=== PATIENT | female | born 1945 | race Caucasian/White ===

== ENCOUNTER 2019-03-19 18:56 | Emergency (ER) | payer MEDICARE, SELFPAY ==
[2019-03-19 18:57] VITALS: BP 168/77; PULSE 108; RESP 18; TEMP 36.6; O2SAT 92; BMI 39.3
--- NOTE | 2019-03-19 19:37 | ED.DCSUM_ITS ---
- ER Visit Summary Date of Service: 03/19/19 Chief Complaint: Right small finger is swollen infected History of Present Illness: The patient is a 73 F history of insulin-dependent diabetes. 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 She thinks she may have been a small puncture wound in the right small finger. She did not see any signs of a splinter she did [place] at the area with a small knife she had at home and said she could not find any foreign body. Now she believes it is infected. She denies any fever or chills. She is right-hand dominant. No prior history. She also says she has some minimal swelling in the top of her left foot. No history of DVT or PE. No recent travel, surgery or immobilization. No calf pain or swelling. Physical Examination: Well-appearing older female vital signs are stable afebrile. She is in no distress. HEENT exam unremarkable. Lungs clear to auscultation bilaterally. Heart regular rhythm no murmur. Abdomen is soft and nontender normal bowel sounds no peritoneal signs. Extremities moves all 4. Neurovascular intact. She has minimal trace edema on top of her left foot. The calf is nontender without cords. No edema in the left lower leg. Both lower extremities neurovascular intact. She is a palpable DP pulse. There is no redness or warmth. The right small finger on the proximal phalanx soft tissue is swollen and tender consistent with a soft tissue infection. There is no lymphangitic streaking. She has full flexion-extension of the. It is mildly tender. There is no foreign body noted. There is a puncture wound. She has no epitrochlear or axillary lymphadenopathy. Neurologically she is awake alert with no focal deficits. Test Results: None Emergency Department Course and Treatment: Right small finger is obviously infected. Nothing needs to be drained at this time. There is no sausage digit. She was started on Augmentin 875 twice daily for 10 days. Follow-up with her doctor if not improving or return if worse. Treatment Plan: Augmentin 875 twice daily for 10 days. Return if worse. Disposition: Discharge Impression: Right small finger infection secondary to puncture wound History of insulin-dependent diabetes This note was generated with [employer] software. It may contain incorrect words, spelling, and punctuation that were not noted in review of the chart prior to signing ED Disposition - Plan for ED Patient: Referrals: Allan Velez DO [Primary Care Provider] -
--- NOTE | 2019-03-19 19:41 | ED.DEP ---
ED Disposition - Plan for ED Patient: Disposition: Home or Assisted Living Instructions: Cellulitis Prescriptions: Amox/Clavulanate Tablet [Augmentin Tablet] 875 mg PO Q12H #20 tab Prescription Printed Referrals: Allan Velez DO [Primary Care Provider] - 3-5 Days Additional Instructions: Soft tissue infection right small finger. Augmentin antibiotic 1 pill twice a day for 10 days. Return if feeling worse or finger looking a lot worse. Patient otherwise follow-up with your doctor. The small swelling in the left foot should resolve with elevation. If it is not to be reevaluated.
[2019-03-19] MEDS: Amox/Clavulanate 875 MG Tablet PO (19:58)
[2019-03-19 19:59] VITALS: BP 141/62; PULSE 100; RESP 16; O2SAT 94
== END 2019-03-19 20:23 | disposition home or self-care (01) ==
PROVIDERS: Emergency Provider Emergency Medicine; Family Provider Preventive Medicine Occupational Medicine; PCP Preventive Medicine Occupational Medicine
DX: L03.011 Cellulitis of right finger (principal); S61.236A Puncture wound without foreign body of right little finger without damage to nail, initial encounter; W60.XXXA Contact with nonvenomous plant thorns and spines and sharp leaves, initial encounter; Y93.H2 Activity, gardening and landscaping; Y92.9 Unspecified place or not applicable; Y99.9 Unspecified external cause status; M79.89 Other specified soft tissue disorders; E11.9 Type 2 diabetes mellitus without complications; Z79.4 Long term (current) use of insulin
CPT/HCPCS: 99283

== ENCOUNTER 2024-09-09 11:20 | Day surgery (SDC) | payer MEDICARE, SELFPAY ==
--- NOTE | 2024-09-05 15:21 | PAT.ANESEVAL ---
Pre-Assessment Diagnosis/Proposed Procedure Planned Operative Procedure(s): BONILAL OSTEOTOMY OF THE RIGHT HALLUX WITH DEBRIDEMENT OF THE ULCERATION. TISSUE REARRANGEMENT SKIN FLAP OF THE RIGHT HALLUX Anesthesia History Anesthesia History - merchandise planning manager: Anesthesia History - merchandise planning manager Hx Hospitalization No 09/05/24 14:53 Any Problems With Anesthesia No 09/05/24 14:53 Cholinesterase deficiency No 09/05/24 14:53 You/Your Family Experience No 09/05/24 14:53 fever (hyperthermia) with Relationship Recent Exposure to Contagious No 02/03/17 06:44 Disease Does patient have nerve No 09/05/24 14:53 stimulator Patient instructed to have device shut off --Does patient have Pacemaker or ICD? When Was Last Pacemaker Check QUESTION #4 FULL TEXT: You/Your Family Experience fever (hyperthermia) with Anesthesia Last Oral Intake Last Oral intake: Last Oral Intake NPO since Meds taken in AM with sips of water? Meds patient instructed to take am of surgery PONV PONV - merchandise planning manager: PONV - merchandise planning manager Female Yes 09/05/24 14:53 HX of Motion Sickness No 09/05/24 14:53 HX of N/V After Surgery No 09/05/24 14:53 Non-Smoker Yes 09/05/24 14:53 Duration of Surgery greater Yes 09/05/24 14:53 than 60 minutes Number of Risk Factors 3 09/05/24 14:53 PONV Score Moderate Risk 09/05/24 14:53 Respiratory Assessment Respiratory Assessment - merchandise planning manager: Respiratory Tract Infection Hx - merchandise planning manager Hx Respiratory Tract Infection No 09/05/24 14:53 STOP Sleep Apnea STOP Sleep Apnea - merchandise planning manager: STOP Sleep Apnea - merchandise planning manager Hx Hypertension No 09/05/24 14:53 Hx Sleep Apnea No 09/05/24 14:53 CPAP BIPAP Do you snore loudly (louder Yes 09/05/24 14:53 than talking or can be heard Do you often feel tired/ Yes 09/05/24 14:53 fatigued/ sleepy during daytime? Has anyone observed you stop No 09/05/24 14:53 breathing during sleep? STOP Results Positive 09/05/24 14:53 QUESTION #5 FULL TEXT : Do you snore loudly (louder than talking or can be heard through closed doors)? Tobacco Use History Tobacco Use History - merchandise planning manager: Tobacco Use History - merchandise planning manager Tobacco Use Smoking Status Never smoker 09/05/24 14:53 Hx Tobacco Use No 09/05/24 14:53 Years Smoking Packs Smoked per Day Smoking Cessation Date was within the last 15 years Hx Smoking Cessation Date Hx Smoking Cessation Counseling Hematologic Medial History Hematologic Hx - merchandise planning manager: Hematologic Medical Hx - electric meter inspector Hx of Blood Transfusion No 09/05/24 14:53 Hx of Transfusion in last 3 No 09/05/24 14:53 Months Date of Last Transfusion (if within last 3 months) Ever experience any problems No 09/05/24 14:53 with transfusion(s)? Specify any problems Hx of Preganancy in last 3 No 09/05/24 14:53 Months Nurse Filling Out Transfusion DSCHRIBER 09/05/24 14:53 & Questions: Date: 09/05/24 09/05/24 14:53 Time: 14:54 09/05/24 14:53 Patient unable to answer at this time (ie. confused, unrespo /Reproduction History /Reproductive History - merchandise planning manager: /Reproductive Hx- merchandise planning manager Hx Now No 09/05/24 14:53 Gestational Age (in weeks): EDC: Hx Hx Para Hx Section SAB No 09/05/24 14:53 PFS Medical History (Updated 09/05/24 @ 15:01 by Carol Perez) Wears dentures Post-menopausal Insulin dependent diabetes mellitus Arthritis Bladder disease Easy bruising Dietary restriction Leg cramps Non-smoker Cardiology follow-up encounter Lymph edema Home Medications ?Medication ?Instructions ?Recorded ?Last Taken ?Type CASSIUS 2 cap PO DAILY 09/05/24 Unknown History ascorbic acid (vitamin C) 1,000 mg 2 g PO DAILY 09/05/24 Unknown History tablet (C-1000) aspirin 81 mg tablet,delayed 81 mg PO DAILY 09/05/24 Unknown History release (Adult Aspirin Regimen) calcium 600 mg (as 1 tab PO DAILY 09/05/24 Unknown History carbonate)-vitamin D3 10 mcg (400 unit) tablet (Calcium 600 + D(3)) cholecalciferol (vitamin D3) 25 25 mcg PO DAILY 09/05/24 Unknown History mcg (1,000 unit) capsule (Vitamin D3) insulin glargine-yfgn 100 unit/mL 20 unit subcut BID SLIDING SCALE 09/05/24 Unknown History (3 mL) subcutaneous pen (Semglee (insulin glargine-yfgn) Pen) magnesium oxide 400 mg PO DAILY 09/05/24 Unknown History multivit with minerals-iron 18 1 tab PO DAILY 09/05/24 Unknown History mg-folic ac 400 mcg-vit K 25 mcg tablet (One Daily Women's) vitamin B complex 1 cap PO DAILY 09/05/24 Unknown History zinc gluconate 50 mg tablet 100 mg PO DAILY 09/05/24 Unknown History Allergy/AdvReac Type Severity Reaction Status Date / Time codeine Allergy Rash Verified 09/05/24 14:45 Surgical History (Updated 09/05/24 @ 15:01 by Carol Perez) Hx of right cataract extraction Hx of left cataract extraction Hx of tonsillectomy Hx laparoscopic cholecystectomy Hx of total hip arthroplasty Hx of total hip arthroplasty Social History Smoking Status: Never smoker Audit: Pertinent Findings Pertinent Findings Additional pertinent findings: Potassium 5.1 08/18/2024 creatinine 0.82 uncontrolled insulin-dependent diabetes Recommendation Anesthesia Recommendation Anesthesia recommendation: OPTIMIZED for anesthesia
[2024-09-09] VITALS (8 sets, daily range): BP systolic 140–162; BP diastolic 61–94; PULSE 74–82; RESP 14–20; TEMP 36.1–36.6; O2SAT 97–100; BMI 35.9
[2024-09-09] MEDS: Dextrose 10%-Water 250 ML 999 ML IV (12:03)
--- NOTE | 2024-09-09 12:19 | PCM.PRE.AN2 ---
ASA Classification* ASA Classification ASA Classification: 3 Assessment & Plan Anesthesia* Anesthesia Assessment Anesthesia Assessment: Discussed sedation and/or anesthesia options, risks, benefits, and alternatives with patient/parents/legal guardian/POA. Questions invited. The patient/parents/legal guardian/POA seems to understand and agrees to proceed with anesthesia plan. Reviewed the physical assessment, medical history, allergy history and patient home medications list prior to surgery/procedure/anesthetic and documented any changes. Performed airway and anesthesia risk assessments. Anesthesia Type Anesthesia Type: MAC (consented for block if surgeon request. GA bkup) Anesthesia Focused Assessment* Temperature: 97.8 F Pulse Rate: 82 Blood Pressure: 162/70 Respiratory Rate: 17 Pulse Ox: 99 Airway Assessment Mouth opens: >3 cm Mallampati Score: II Focused Labs Anesthesia Preop lab: CBC WBC 9.6 K/mm3 (4.4-11.0) 02/05/17 04:58 RBC 3.52 M/mm3 (4.2-5.4) L 02/05/17 04:58 Hgb 9.9 g/dl (12.0-15.0) L 02/05/17 04:58 Hct 29.4 % (37-47) L 02/05/17 04:58 Plt Count 236 K/mm3 (150-450) 02/05/17 04:58 CHEMISTRY Potassium 4.1 mmol/L (3.5-5.1) 02/04/17 06:02 Sodium 130 mmol/L (136-145) L 02/04/17 06:02 BUN 12 mg/dL (7-18) 02/04/17 06:02 Creatinine 0.71 mg/dL (0.55-1.02) 02/04/17 06:02 Glucose 215 mg/dL (70-110) H 02/04/17 06:02 POC Glucose 236 mg/dL (70-110) H 02/05/17 11:22 COAG Pre-Assessment Diagnosis/Proposed Procedure Planned Operative Procedure(s): BONILLA OSTEOTOMY OF THE RIGHT HALLUX WITH DEBRIDEMENT OF THE ULCERATION. TISSUE REARRANGEMENT SKIN FLAP OF THE RIGHT HALLUX Anesthesia History Anesthesia History - training program assistant: Anesthesia History - training program assistant Hx Hospitalization No 09/05/24 14:53 Any Problems With Anesthesia No 09/05/24 14:53 Cholinesterase deficiency No 09/05/24 14:53 You/Your Family Experience No 09/05/24 14:53 fever (hyperthermia) with Relationship Recent Exposure to Contagious No 09/09/24 12:03 Disease Does patient have nerve No 09/05/24 14:53 stimulator Patient instructed to have device shut off --Does patient have Pacemaker No 09/09/24 12:03 or ICD? When Was Last Pacemaker Check QUESTION #4 FULL TEXT: You/Your Family Experience fever (hyperthermia) with Anesthesia Last Oral Intake Last Oral intake: Last Oral Intake NPO since 05:00 09/09/24 12:03 Meds taken in AM with sips of No 09/09/24 12:03 water? Meds patient instructed to take am of surgery PONV PONV - training program assistant: PONV - training program assistant Female Yes 09/05/24 14:53 HX of Motion Sickness No 09/05/24 14:53 HX of N/V After Surgery No 09/05/24 14:53 Non-Smoker Yes 09/05/24 14:53 Duration of Surgery greater Yes 09/05/24 14:53 than 60 minutes Number of Risk Factors 3 09/05/24 14:53 PONV Score Moderate Risk 09/05/24 14:53 Height & Weight Height & Weight: Anesthesia: Height & Weight Height 5 ft 2 in 09/09/24 12:03 Weight: 89 kg 09/09/24 12:03 Body Mass Index (BMI) 35.9 09/09/24 12:03 Respiratory Assessment Respiratory Assessment - training program assistant: Respiratory Tract Infection Hx - training program assistant Hx Respiratory Tract Infection No 09/05/24 14:53 STOP Sleep Apnea STOP Sleep Apnea - training program assistant: STOP Sleep Apnea - training program assistant Hx Hypertension No 09/05/24 14:53 Hx Sleep Apnea No 09/05/24 14:53 CPAP BIPAP Do you snore loudly (louder Yes 09/05/24 14:53 than talking or can be heard Do you often feel tired/ Yes 09/05/24 14:53 fatigued/ sleepy during daytime? Has anyone observed you stop No 09/05/24 14:53 breathing during sleep? STOP Results Positive 09/05/24 14:53 QUESTION #5 FULL TEXT : Do you snore loudly (louder than talking or can be heard through closed doors)? Tobacco Use History Tobacco Use History - training program assistant: Tobacco Use History - training program assistant Tobacco Use Smoking Status Never smoker 09/05/24 14:53 Hx Tobacco Use No 09/05/24 14:53 Years Smoking Packs Smoked per Day Smoking Cessation Date was within the last 15 years Hx Smoking Cessation Date Hx Smoking Cessation Counseling Hematologic Medial History Hematologic Hx - training program assistant: Hematologic Medical Hx - [employer] consultant Hx of Blood Transfusion No 09/05/24 14:53 Hx of Transfusion in last 3 No 09/05/24 14:53 Months Date of Last Transfusion (if within last 3 months) Ever experience any problems No 09/05/24 14:53 with transfusion(s)? Specify any problems Hx of Preganancy in last 3 No 09/05/24 14:53 Months Nurse Filling Out Transfusion DSCHRIBER 09/05/24 14:53 & Questions: Date: 09/05/24 09/05/24 14:53 Time: 14:54 09/05/24 14:53 Patient unable to answer at this time (ie. confused, unrespo /Reproduction History /Reproductive History - training program assistant: /Reproductive Hx- training program assistant Hx Now No 09/05/24 14:53 Gestational Age (in weeks): EDC: Hx Hx Para Hx Section SAB No 09/05/24 14:53 Active Medications Active Medications: Current Medications Generic Name Dose Route Start Last Admin Trade Name Freq PRN Reason Stop Dose Admin Cefazolin Sodium 2 gm/ N/A 20 mls @ 400 mls/hr 09/09/24 13:00 IV 09/09/24 13:02 PREOP [facility] Medical History Wears dentures Post-menopausal Insulin dependent diabetes mellitus Arthritis Bladder disease Easy bruising Dietary restriction Leg cramps Non-smoker Cardiology follow-up encounter Lymph edema Home Medications ?Medication ?Instructions ?Recorded ?Last Taken ?Type CASSIUS 2 cap PO DAILY 09/05/24 09/08/24 History ascorbic acid (vitamin C) 1,000 mg 2 g PO DAILY 09/05/24 09/08/24 History tablet (C-1000) aspirin 81 mg tablet,delayed 81 mg PO DAILY 09/05/24 09/08/24 History release (Adult Aspirin Regimen) calcium 600 mg (as 1 tab PO DAILY 09/05/24 09/08/24 History carbonate)-vitamin D3 10 mcg (400 unit) tablet (Calcium 600 + D(3)) cholecalciferol (vitamin D3) 25 25 mcg PO DAILY 09/05/24 09/08/24 History mcg (1,000 unit) capsule (Vitamin D3) insulin glargine-yfgn 100 unit/mL 20 unit subcut BID SLIDING SCALE 09/05/24 09/08/24 History (3 mL) subcutaneous pen (Semglee (insulin glargine-yfgn) Pen) magnesium oxide 400 mg PO DAILY 09/05/24 09/08/24 History multivit with minerals-iron 18 1 tab PO DAILY 09/05/24 09/08/24 History mg-folic ac 400 mcg-vit K 25 mcg tablet (One Daily Women's) vitamin B complex 1 cap PO DAILY 09/05/24 09/08/24 History zinc gluconate 50 mg tablet 100 mg PO DAILY 09/05/24 09/08/24 History Allergy/AdvReac Type Severity Reaction Status Date / Time codeine Allergy Rash Verified 09/09/24 12:07 Surgical History Hx of right cataract extraction Hx of left cataract extraction Hx of tonsillectomy Hx laparoscopic cholecystectomy Hx of total hip arthroplasty Hx of total hip arthroplasty Social History Smoking Status: Never smoker Review of Systems (Anesthesia) ROS Narrative System reviewed and no additional complaints, except as documented.
[2024-09-09 12:27] LABS: Bedside Glucose 48 mg/dL (74-106)
--- NOTE | 2024-09-09 12:32 | DCINST_ITS ---
Discharge Instructions Diet Discharge Diet: No restrictions DC O2, CPAP, BIPAP needs Home O2 Discharge instructions: No Dressing / Incision Discharge Activity: May Drive (May drive once off narcotic medication while wearing surgical shoe to right foot) and May Shower (Please utilize cast bag when showering to keep all dressings clean, dry, and intact to the right foot) Weight Bearing Status: Weight bearing as tolerated (May remain weightbearing as tolerated to right foot with surgical shoe) Keep extremity elevated above heart level: Right Leg (Elevate right foot at all times of rest for postoperative edema control) Dressing / Incision Call your doctor if you observe: Fever of 101 or Higher, Shortness of breath, Chest pain, Calf discomfort and Uncontrolled pain Change Dressing in: do not change dressing Remove Dressing in: leave in place till F/U (Do not change dressing. Leave all dressings clean, dry, and intact to the right foot. Physician will change dressing at first postop appointment) Cleanse incision/area with: Do not get Incision Wet and Keep Dressing Clean & Dry (Please utilize cast bag when showering to keep dressings clean, dry, and intact to right foot) Follow Up Care Please Follow Up With: Aj Marcelino DPM Test Results: Test results from this visit will be discussed in further detail at your follow- up appointment, if applicable. Discharge Plan Admission Attending Provider: Aj Marcelino Primary Care Provider: Amrit Shepard Instructions Print Language: Uruguayan Discharge Orders/Prescriptions Prescriptions: New doxycycline hyclate 100 mg capsule 100 mg PO DAILY Qty: 10 0RF tramadol 50 mg tablet 50 mg PO Q8H 7 Days Qty: 28 0RF No Action insulin glargine-yfgn [Semglee(insulin glarg-yfgn)Pen] 100 unit/mL (3 mL) insulin pen 20 unit subcut BID calcium carbonate-vitamin D3 [Calcium 600 + D(3)] 600 mg-10 mcg (400 unit) tablet 1 tab PO DAILY ascorbic acid (vitamin C) [C-1000] 1,000 mg tablet 2 g PO DAILY zinc gluconate 50 mg tablet 100 mg PO DAILY aspirin [Adult Aspirin Regimen] 81 mg tablet,delayed release (DR/EC) 81 mg PO DAILY vitamin B complex Capsule 1 cap PO DAILY cholecalciferol (vitamin D3) [Vitamin D3] 25 mcg (1,000 unit) capsule 25 mcg PO DAILY magnesium oxide 400 mg magnesium capsule 400 mg PO DAILY One Daily Women's 18 mg iron-400 mcg-25 mcg tablet 1 tab PO DAILY CASSIUS 2 cap PO DAILY Referrals / Follow Up: Amrit Shepard DO [Primary Care Provider] - Disposition Disposition (needs filled in before D/C Order can be placed): Home, Self Care
[2024-09-09 12:57] LABS: Bedside Glucose 130 mg/dL (74-106)
--- NOTE | 2024-09-09 13:00 | BON_PTH ---
PATIENT: LORNA DOTSON LOC: [facility] [place] U#:[id number] AGE/SX: 79/F ROOM: RE09/09/[address]: Dr. Aj Marcelino DPM : 1945 BED: DIS: 09/09/2024 SPEC #: [id number] RECD: 09/09/24 17:01 STATUS: JOE CASSANDRA #: [id number] MANJULA: 09/09/24 13:[address]: Aj Marcelino DEPT: SURGICAL PATHOLOGY RECD BY: Alma Delia Goldman ENTERED: 09/12/24 09:44 SP TYPE: Bone OTHR DR: Dr. 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 Negative for acute osteomyelitis. . 09/14/2024 MICROSCOPIC DESCRIPTION Slides are reviewed. GROSS DESCRIPTION Received in fixative is one container labeled with the patient's name and designated Right proximal phalanx bone. The specimen consists of a piece of bone measuring 2.0 x 0.7 x 0.7cm. The specimen is bisected and submitted entirely in one cassette after decalcification. . 09/12/2024 TC:3 CPT:[id number]
--- NOTE | 2024-09-09 13:00 | RAD_ITS ---
STUDY: X-RAY - RIGHT FOOT CLINICAL: Female, 79 years old. OSTEOTOMY TECHNIQUE: 5 fluoroscopic intraoperative spot films of the right foot. COMPARISON: None. FINDINGS: Before and after fluoroscopic intraoperative spot films of the right foot were obtained, demonstrating resection of the head of the proximal phalanx of the great toe. Normal metatarsophalangeal joint of the great toe. Normal tibial and fibular sesamoid bones. Normal second through fifth metatarsophalangeal joints. Normal interphalangeal joints and phalanges of the lesser toes. RAD/Foot min 3 Views IMPRESSION: Fluoroscopic intraoperative spot films of the right foot obtained during resection of the head of the proximal phalanx of the great toe. Electronically Signed: Jurgen Gordon MD at 16:13 EST ,
[2024-09-09] MEDS: Cefazolin 2 GM in Syringe IV (13:03)
[2024-09-09] MEDS: Lidocaine 1% (20 ml mdv) 20 ML Vial (14:48)
[2024-09-09] MEDS: Bupivacaine 0.5% PF 10 ML VIAL (14:49)
--- NOTE | 2024-09-09 15:02 | PCM.POST.ANE ---
Anesthesia: Postop Eval I Current Vital Signs Temperature: 97 F Pulse Rate: 80 Blood Pressure: 140/94 Respiratory Rate: 16 Pulse Ox: 99 Oxygen Delivery Method: Room Air Assessment Airway patent: Yes Spontaneous unlabored respirations: Yes Mental status: Awake and Calm nausea: No Vomiting: No Anesthesia Complication: No Fluid Hydration Crystalloid volume administer (ml): 800 Total IV fluid infused: 800 Progress Note Anesthesia document: Postop Eval 1 completed: Yes
--- NOTE | 2024-09-09 15:03 | POSTOPAN2_ITS ---
Anesthesia Postop Eval I Sum Postop Eval Completion status Anesthesia document: Postop Eval 1 completed: Yes Anesthesia Postop Eval I Summary Anesthesia Postop Eval I Summary: Anesthesia Postop Eval I: Assessment Summary Airway patent Yes 09/09/24 15:03 [email or web address] Spontaneous unlabored Yes 09/09/24 15:03 [email or web address] [email or web address] respirations Mental status Awake,Calm 09/09/24 15:03 TILE [email or web address] nausea No 09/09/24 15:03 TILE [email or web address] Vomiting No 09/09/24 15:03 TILE [email or web address] Anesthesia Postop Eval I: Fluid Summary Crystalloid volume administer 800 09/09/24 15:03 TILE [email or web address].MDOT (ml) Colloids volume administered ( ml) Blood Product volume administered (ml) Total IV fluid infused 800 09/09/24 15:03 TILE [email or web address] Anesthesia Postop Eval I: Summary Notes Anesthesia Complication No 09/09/24 15:03 TILE [email or web address] Anesthesia Complication Comment: Post-operative progress note Anesthesia: Postop Eval II Evaluation Mental status: Awake and Calm Pain Level: 0 nausea: No Vomiting: No Complications Anesthesia Complication: No
--- NOTE | 2024-09-09 15:03 | PCM.POSTANE2 ---
Anesthesia Postop Eval I Sum Postop Eval Completion status Anesthesia document: Postop Eval 1 completed: Yes Anesthesia Postop Eval I Summary Anesthesia Postop Eval I Summary: Anesthesia Postop Eval I: Assessment Summary Airway patent Yes 09/09/24 15:03 SILVERWARE [email or web address] Spontaneous unlabored Yes 09/09/24 15:03 SILVERWARE [email or web address] respirations Mental status Awake,Calm 09/09/24 15:03 SILVERWARE [email or web address] nausea No 09/09/24 15:03 SILVERWARE [email or web address] Vomiting No 09/09/24 15:03 SILVERWARE [email or web address] Anesthesia Postop Eval I: Fluid Summary Crystalloid volume administer 800 09/09/24 15:03 SILVERWARE [email or web address].MDOT (ml) Colloids volume administered ( ml) Blood Product volume administered (ml) Total IV fluid infused 800 09/09/24 15:03 SILVERWARE [email or web address] Anesthesia Postop Eval I: Summary Notes Anesthesia Complication No 09/09/24 15:03 SILVERWARE [email or web address] Anesthesia Complication Comment: Post-operative progress note Anesthesia: Postop Eval II Evaluation Mental status: Awake and Calm Pain Level: 0 nausea: No Vomiting: No Complications Anesthesia Complication: No
--- NOTE | 2024-09-09 15:10 | RAD_ITS ---
STUDY: X-RAY - RIGHT FOOT CLINICAL: Female, 79 years old. Post-op s/p Arthroplasty 1st digit/MTPJ (PACU) TECHNIQUE: 3 views of the right foot. COMPARISON: None. FINDINGS: Normal talus, calcaneus, and tarsal bones. Normal visualized subtalar, talonavicular, calcaneocuboid, tarsal and tarsometatarsal articulations. Normal metatarsi. Normal metatarsophalangeal joint of the great toe. Normal tibial and fibular sesamoid bones. There has been resection of the head of the proximal phalanx of the great toe. There is soft tissue gas in the space between the proximal and distal phalanges of the great toe, compatible with recent surgery. Intact distal phalanx of the great toe. Normal second through fifth metatarsophalangeal joints. Normal interphalangeal joints and phalanges of the lesser toes. There is soft tissue swelling of the great toe. RAD/Foot min 3 Views IMPRESSION: Resection of the head of the proximal phalanx of the great toe. Electronically Signed: Jurgen Gordon MD at 15:24 EST ,
[2024-09-09] MEDS: Ketorolac 15 MG/ML Vial IV (15:14)
--- NOTE | 2024-09-09 15:44 | PCM.OPRPT ---
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 Non-Healing Ulceration Plantar Right Hallux IPJ 2. Hallux Limitus Right foot 3. Diabetes Mellitus type II without complication Post-Operative Diagnosis: 1. Non-Healing Ulceration Plantar Right Hallux IPJ 2. Hallux Limitus Right foot 3. Diabetes Mellitus type II without complication Surgery/Procedure Performed: 1. Hallux Interphalangeal joint Arthroplasty Right foot 2. Extensor Hallucis Longus Tendon Lengthening Right foot 3. Debridement of Ulceration to level of Subcutaneous Tissue Right foot 4. Tissue Rearrangement/Skin flap Right foot ophthalmic lens inspector: Yes Machine Pan Greaser: Dr. Dilia Higgins, DPM PGY-1 Tasks completed by clinical assistant professor: Closing, Retracting and Other (Bone cut with removal of bone) Type of Anesthesia: Local MAC (20cc one-to-one mixture of 1% lidocaine plain and 0.5% Marcaine plain) RN Documented Start/Stop Times: Operation Date: 09/09/24 13:00 Case Time Into Pre-Op 09/09/24 11:29 Out of Pre-Op 09/09/24 12:58 Anesthesia Start 09/09/24 13:02 Into Room 09/09/24 13:02 Procedure Start 09/09/24 13:39 Procedure End 09/09/24 14:54 Anesthesia End 09/09/24 15:00 Out of Room 09/09/24 15:00 Into Recovery 09/09/24 15:02 Into Phase II Recovery 09/09/24 15:33 Out of Recovery 09/09/24 15:33 Procedure Start Time: 13:39 Procedure Stop Time: 14:54 Select all DRAINS/GRAFTS/IMPLANTS that apply: None Estimated Blood Loss: < 1mL Specimen collected: Yes Description of specimen(s) removed: Bone Proximal Phalanx Right Hallux Description of surgery: HPI/indication: This is an 79-year-old female who first presented to office April 2024 with complaint of ulceration to the plantar aspect of the right hallux. She developed ulceration secondary to functional hallux limitus with thick hyperflexion of the IPJ of the right hallux. Ulceration first was noted following mowing her yard and when she pushed mowed several acres and when finished noticed some blood on her sock after shoe removal in which she then removed the sock noticing her previous area of callus had split with a deep fissure. She had begun caring for the site with antibiotic ointment and Band-Aid application for a few weeks prior to presentation. Ulceration did undergo offloading via Cosby's extension and local wound care and she did go on to heal in early June. Patient then traveled to [place] to visit her son in which they did a lot of hiking. Does report ambulating barefoot on the hard surfaces of of the tile floor of her son's house in which she did note reopening of the ulceration at this time. It was discussed with her upon her return to undergo surgical intervention to aid in offloading of the ulcerative site. She was reluctant to undergo procedure at that time. Local wound care was continued to be performed for an additional 4 weeks with failure to continue healing due to her continuing to pick at the callus skin and ambulating barefoot. Surgical intervention was again discussed outlining high risk of infection given diabetic status and need for possible amputation upon further discussion with her son she decided upon undergoing the surgical procedure. Discussed the surgical procedure in great detail. Discussed all risk and complications of the procedure. Discussed typical postoperative course of the procedure. Discussed the risks include but are not limited to the following: Pain, continued pain, complex regional pain syndrome, infection, neuritis/numbness, delayed healing/nonhealing, dehiscence, under correction/overcorrection, need for additional surgery, swelling, scarring, poor cosmetic result, cock-up toe, deviated toe, transfer lesion, stress fracture/fracture, postoperative arthritis, continued progression of arthritis, difficulty with ambulation, difficulty wearing shoe gear, blood clot, allergic reaction, stroke, heart attack, loss of function, loss of limb, loss of life. Patient voices understanding of these and was able to repeat these back. Consent for procedure was signed at patient's free will. Patient was cleared for surgical intervention by PCP. All diagnostic data was reviewed prior to surgical intervention. Operative limb was signed prior to entering the OR. Patient was set to undergo surgical intervention at [facility] on 09/09/2024 for Turpin osteotomy versus hallux interphalangeal joint arthroplasty, EHL tendon lengthening, debridement of ulceration right hallux, and tissue rearrangement/skin flap. Procedure: Under mild sedation patient was brought in the operating placed on table supine position. Following induction of IV anesthetic a blanket bump was placed under the right hip and the right foot was elevated via a blanket bump. Pneumatic ankle tourniquet was then placed about the patient's right ankle and a local anesthetic block was then performed about the proximal aspect of the first ray consisting of 10 cc one-to-one mixture 1% lidocaine plain 0.5% Marcaine plain. The foot was then scrubbed, prepped, and draped in the usual aseptic manner. Next, fluoroscopic imaging was obtained of the right foot marking position of current ulceration at the plantar aspect of the right hallux IPJ utilizing a [place]. Ulceration was noted to demonstrate no signs of infection and is covered with hyperkeratotic tissue. Esmarch bandage was then utilized to exsanguinate the right foot and the pneumatic ankle drain was inflated to 250 mmHg. At this time attention was directed to the right foot where a linear incision was made overlying the first metatarsophalangeal joint extending distally to the base of the distal phalanx utilizing a #15 blade. Incision was deepened via sharp and blunt dissection. Care was taken to identify and retract all vital neurovascular structures and protected throughout the duration of this case. The EHL tendon was visualized and a linear incision was made just medial to this and the tendon was retracted laterally and protected throughout the duration of this case. Incision was then deepened via sharp dissection to the level of the periosteum with identification of the hallux interphalangeal joint. Incision was made through the capsular tissue of the interphalangeal joint and site was freed exposing the head of the proximal phalanx of the operative field. Head of the proximal phalanx was noted to appear healthy with intact shiny cartilage and no signs of osteomyelitis. Consistency of bone was noted to be hard indicating viability of both the head of the proximal phalanx and base of the distal phalanx. Utilizing assistance of fluoroscopy a sagittal saw was utilized to resect the head of the proximal phalanx. Proximal phalanx head was then excised and transferred from the operative field to the table in toto. Proximal phalanx was sent as specimen to pathology for analysis. Next, utilizing rongeur the base of the proximal phalanx of the most medial aspect was debrided of sharp edges and smoothed with a bone rasp. Site was flushed with copious amounts of normal sterile saline. Flexor tendon was inspected with no signs of laceration. The extensor hallucis longus tendon was then examined noting some fraying and weakening secondary to her hyperflexion and chronic pull at the IPJ. At this time the extensor hallucis longus tendon underwent Z-plasty lengthening and was repaired utilizing a 4-0 Vicryl. The weekend portion of the extensor hallucis longus tendon near the base of the phalanx underwent repair utilizing 4-0 Vicryl in simple interrupted fashion. Foot was then loaded simulating weightbearing with rectus hallux noted. Site was again flushed with copious amounts of normal sterile saline. Final fluoroscopic imaging was obtained and reviewed prior to closure. Capsular tissue was then repaired utilizing 4-0 Vicryl. Subcutaneous tissue closed utilizing 4-0 Monocryl. Skin was then reapproximated utilizing 3-0 Prolene in simple interrupted fashion. Next, attention was directed to the plantar aspect of the right hallux at the interphalangeal joint where a hyperkeratotic tissue was noted to be covering small portion of ulceration which was sharply debrided utilizing #15 blade. Following debridement of all hyperkeratotic tissue there was noted to be a nonhealing ulceration at the level of the IPJ extending to the subcutaneous tissue. Ulceration underwent sharp excisional debridement to the level of subcutaneous tissue utilizing #15 blade and curette. Debridement consisted of removal of the hyperkeratotic tissue, fibrous, devitalized subcutaneous, biofilm, slough. 100% of the ulceration underwent debridement. Ulceration post debridement measured 1.1 cm x 0.6 cm. During debridement there was no evidence of purulent drainage or other signs of infection. Underlying tissue did appear healthy with granular layer. Site was then irrigated with copious amounts of normal sterile saline. Skin adjacent to ulcerative defect underwent tissue rearrangement/skin flap to close previous ulcerative defect. Closure was noted to be successful without tension on the skin flap and skin was repaired utilizing 3-0 Prolene in simple interrupted fashion. Pneumatic ankle tourniquet was then deflated and a prompt hyperemic response was noted to the digits of the right foot. Skin flap did pink up upon return of blood flow to the site. A postoperative block was then performed about the proximal aspect of the first ray consisting of 10 cc one-to-one mixture 1% lidocaine plain 0.5% Marcaine plain. Incision sites were then dressed with Betadine soaked Adaptic, 4 x 4 fluff, 4 x 4 gauze, Kerlix, and 4 inch Isaac wrap rolled onto the right foot. Patient tolerated the anesthesia and procedure well and was transported to PACU with vital signs stable vascular status intact to the right foot. Postoperative imaging obtained in PACU and reviewed prior to leaving. Postoperative care was discussed with son following procedure with discharge instructions given. She is instructed to keep all dressings clean, dry, and intact to the right foot. She will use cast bag when showering to assist in compliance. Discussed with son she is not to change dressings. Discussed she is to only ambulate as tolerated in the surgical shoe. Discussed ambulation is only for bathroom privileges, bed, or food otherwise to rest is much as possible. Son states he is understanding of this and he will attempt to aid in caring for his mother in postoperative period however does note she is noncompliant. She will take all postoperative medication as instructed. Patient will continue to follow with me in office for continued postoperative care early next week. Surgical Findings: No osteomyelitis Ulceration to the level of subcutaneous tissue plantar right hallux, no signs of infection. See operative note for the rest of the findings Complications Complications: No Admit VTE Documentation VTE Present on Admission: No VTE Mechan Device Prophylaxis: SCD's VTE Pharm Prophylaxis ordered?: No Reason prophylaxis not ordered: Treatment Not Indicated
== END 2024-09-09 16:56 | disposition home or self-care (01) ==
LOC: SDC 11:22 → AC 11:23
PROVIDERS: PCP Preventive Medicine Occupational Medicine; Referring Provider Student in an Organized Health Care Education/Training Program; Visit Provider Student in an Organized Health Care Education/Training Program
PROC: (CPT 28292; principal; 2024-09-09 12:45)
DX: E11.621 Type 2 diabetes mellitus with foot ulcer (principal); L97.512 Non-pressure chronic ulcer of other part of right foot with fat layer exposed; Z79.4 Long term (current) use of insulin; M20.5X1 Other deformities of toe(s) (acquired), right foot; X58.XXXA Exposure to other specified factors, initial encounter; Z79.82 Long term (current) use of aspirin
CPT/HCPCS: 28292; 14040; 11042; 01480; 73630; 76000; 82962; 88305; A4216; J2405